=== PATIENT | female | born 1960 | race Caucasian/White ===

== ENCOUNTER 2023-03-21 12:09 | Emergency (ER) | payer BC, OTHER ==
[~2023-03-21] VITALS: Ht 157 cm; Wt 124.0 kg
--- NOTE | 2023-03-21 12:21 | ED Neurological Problem ---
General Stated Complaint: RT SIDED NUMBNESS; C-SPINE PAIN History of Present Illness Date Seen by Provider: Mar 21, 2023 Time Seen by Provider: 12:18 Initial Comments 62-year-old female presents with what she is describing as "right sided numbness" this been going on at least a month and a half in her right arm and hand. She does have some pain in her neck. She reports that today she felt like her right side of her face was numb like she had a "Novocain shot" and that the whole right side of her body is numb. Patient denies any focal weakness deficit slurred speech or other systemic complaints. Allergies and Home Medications Allergies Coded Allergies: tetracycline (Verified Allergy, Severe, RASH, 03/21/23) Patient Home Medication List Home Medication List Reviewed: Yes Review of Systems Review of Systems Constitutional: see HPI Eyes: No Symptoms Reported Ears, Nose, Mouth, Throat: no symptoms reported Respiratory: no symptoms reported Cardiovascular: no symptoms reported Gastrointestinal: no symptoms reported Genitourinary: no symptoms reported Musculoskeletal: no symptoms reported Skin: no symptoms reported Psychiatric/Neurological: See HPI Physical Exam Vital Signs Vital Signs - First Documented 03/21/23 12:10 Temp 36.4 Pulse 85 Resp 16 B/P (MAP) 174/90 (118) Pulse Ox 97 O2 Delivery Room Air Capillary Refill : Height, Weight, BMI Height: '" Weight: lbs. oz. kg; BMI Method: General Appearance: WD/WN, no apparent distress HEENT: PERRL/EOMI, normal ENT inspection, pharynx normal Neck: full range of motion, supple Respiratory: lungs clear, normal breath sounds Cardiovascular: normal peripheral pulses, regular rate, rhythm Gastrointestinal: non tender, soft Extremities: normal range of motion, non-tender, normal inspection Neurologic/Psychiatric: form maker II-XII nml as tested, alert, normal mood/affect, oriented x 3; No sensory deficit; other (Patient states the right side feels numb but then on exam states everything feels the same) Crainal Nerves: normal hearing, normal speech; No abnormal speech, No facial asymmetry, No facial paresthesias, No facial weakness Coordination/Gait: normal finger to nose, normal gait Skin: normal color, warm/dry Progress/Results/Core Measures Results/Orders Lab Results Laboratory Tests Test 03/21/23 12:30 Range/Units White Blood Count 12.4 H 4.3-11.0 10^3/uL Red Blood Count 5.03 3.80-5.11 10^6/uL Hemoglobin 13.2 11.5-16.0 g/dL Hematocrit 41 35-52 % Mean Corpuscular Volume 82 80-99 fL Mean Corpuscular Hemoglobin 26 25-34 pg Mean Corpuscular Hemoglobin Concent 32 32-36 g/dL Red Cell Distribution Width 15.1 H 10.0-14.5 % Platelet Count 395 130-400 10^3/uL Mean Platelet Volume 9.1 9.0-12.2 fL Immature Granulocyte % (Auto) 1 % Neutrophils (%) (Auto) 47 42-75 % Lymphocytes (%) (Auto) 37 12-44 % Monocytes (%) (Auto) 9 0-12 % Eosinophils (%) (Auto) 5 0-10 % Basophils (%) (Auto) 1 0-10 % Neutrophils # (Auto) 5.9 1.8-7.8 10^3/uL Lymphocytes # (Auto) 4.6 H 1.0-4.0 10^3/uL Monocytes # (Auto) 1.1 H 0.0-1.0 10^3/uL Eosinophils # (Auto) 0.6 H 0.0-0.3 10^3/uL Basophils # (Auto) 0.1 0.0-0.1 10^3/uL Immature Granulocyte # (Auto) 0.1 0.0-0.1 10^3/uL Percent Immature Platelet Fraction 2.4 0.0-7.6 % Prothrombin Time 13.5 12.2-14.7 SEC INR Comment 1.0 0.8-1.4 Activated Partial Thromboplast Time 36 H 24-35 SEC Sodium Level 136 135-145 MMOL/L Potassium Level 4.1 3.6-5.0 MMOL/L Chloride Level 98 98-107 MMOL/L Carbon Dioxide Level 25 21-32 MMOL/L Anion Gap 13 5-14 MMOL/L Blood Urea Nitrogen 9 7-18 MG/DL Creatinine 1.03 0.60-1.30 MG/DL Estimat Glomerular Filtration Rate 62 BUN/Creatinine Ratio 9 Glucose Level 94 70-105 MG/DL Calcium Level 9.8 8.5-10.1 MG/DL Corrected Calcium 9.4 8.5-10.1 MG/DL Magnesium Level 2.2 1.6-2.4 MG/DL Total Bilirubin 0.5 0.1-1.0 MG/DL Aspartate Amino Transf (AST/SGOT) 24 5-34 U/L Alanine Aminotransferase (ALT/SGPT) 16 0-55 U/L Alkaline Phosphatase 166 H 40-136 U/L Total Protein 8.4 H 6.4-8.2 GM/DL Albumin 4.5 3.2-4.5 GM/DL My Orders Orders - JAS REYNOLDS DO Ct Angio Head/Neck (03/21/23 12:21) Cbc And Automated Diff (03/21/23 12:21) Comprehensive Metabolic Panel (03/21/23 12:21) Magnesium (03/21/23 12:21) Protime With Inr (03/21/23 12:21) Partial Thromboplastin Time (03/21/23 12:21) Thyroid Analyzer (03/21/23 12:21) Iohexol Injection (Omnipaque 350 Mg/Ml 1 (03/21/23 13:15) Received Contrast (Hold Metformin- Contr (03/21/23 13:15) Ns (Ivpb) 100 Ml (Sodium Chloride 0.9% 1 (03/21/23 13:15) Medications Given in ED Current Medications Medications Dose Ordered Sig/Yasmin Route Start Time Stop Time Status Last Admin Dose Admin Iohexol 75 ml ONCE ONCE IV 03/21/23 13:15 03/21/23 13:16 DC 03/21/23 13:16 75 ML Sodium Chloride 100 ml ONCE ONCE IV 03/21/23 13:15 03/21/23 13:16 DC 03/21/23 13:16 80 ML Vital Signs/I&O 03/21/23 12:10 Temp 36.4 Pulse 85 Resp 16 B/P (MAP) 174/90 (118) Pulse Ox 97 O2 Delivery Room Air Progress Progress Note : Progress Note Patient's diagnostic studies were ordered reviewed and interpreted by me. Patient labs show no significant acute abnormalities. Patient's CT head and CTA were reviewed and showed no acute findings. Patient's symptoms are more of a paresthesia than any stroke type symptoms. I recommend she follow-up with her primary care provider for further outpatient work-up including possible MRI or neurologic consultation. She was stable and discharged home. Patient is at increased risk for morbidity and mortality based on her social determinants of health. Departure Impression Primary Impression: Paresthesia Disposition: 01 HOME, SELF-CARE Condition: Stable Departure-Patient Inst. Referrals: NO,LOCAL PHYSICIAN (PCP/Family) Primary Care Physician Patient Instructions: Paresthesia (DC) Add. Discharge Instructions: Please follow-up with your primary care provider for further evaluation including possible MRIs or neuro referral. JAS REYNOLDS DO Mar 21, 2023 12:20
[2023-03-21 12:35] LABS: BASOPHILS # (AUTO) 0.1 10^3/uL (0.0-0.1); BASOPHILS % (AUTO) 1 % (0-10); EOSINOPHILS # (AUTO) 0.6 10^3/uL (0.0-0.3); EOSINOPHILS % (AUTO) 5 % (0-10); HEMATOCRIT 41 % (35-52); HEMOGLOBIN 13.2 g/dL (11.5-16.0); LYMPHOCYTES # (AUTO) 4.6 10^3/uL (1.0-4.0); LYMPHOCYTES % (AUTO) 37 % (12-44); MEAN CORPUSCULAR HEMOGLOBIN 26 pg (25-34); MEAN CORPUSCULAR HGB CONC 32 g/dL (32-36); MEAN CORPUSCULAR VOLUME 82 fL (80-99); MEAN PLATELET VOLUME 9.1 fL (9.0-12.2); MONOCYTES # (AUTO) 1.1 10^3/uL (0.0-1.0); MONOCYTES % (AUTO) 9 % (0-12); NEUTROPHILS # (AUTO) 5.9 10^3/uL (1.8-7.8); NEUTROPHILS % (AUTO) 47 % (42-75); PLATELET COUNT 395 10^3/uL (130-400); WHITE BLOOD COUNT 12.4 10^3/uL (4.3-11.0)
[2023-03-21 12:56] LABS: PROTHROMBIN TIME PATIENT 13.5 SEC (12.2-14.7)
[2023-03-21 12:57] LABS: ALBUMIN 4.5 GM/DL (3.2-4.5); BILIRUBIN,TOTAL 0.5 MG/DL (0.1-1.0); CALCIUM 9.8 MG/DL (8.5-10.1); CREATININE SERUM 1.03 MG/DL (0.60-1.30); MAGNESIUM 2.2 MG/DL (1.6-2.4); POTASSIUM 4.1 MMOL/L (3.6-5.0); TOTAL PROTEIN 8.4 GM/DL (6.4-8.2)
[2023-03-21] MEDS ORDERED: HOLD METFORMIN - RECEIVED CONTRAST 20 ML VIAL IV SCH (13:15)
[2023-03-21] MEDS ORDERED: IOHEXOL 350 MG/ML 100 ML (OMNIPAQUE 350) VIAL IV ONE (13:15)
[2023-03-21] MEDS ORDERED: NS 100 ML (IVPB) BAG IV ONE (13:15)
--- NOTE | 2023-03-21 14:10 | Diagnostic Imaging Report ---
PROCEDURE: CT angiography of the head and CT angiography of the neck with and without contrast. TECHNIQUE: Contiguous noncontrast images were obtained from the skull base through the vertex. After intravenous contrast administration, helical CT angiography of the neck was performed. Source data was reformatted into 3D MIP projections. Delayed post contrast acquisition was also obtained. Auto Exposure Controls were utilized during the CT exam to meet ALARA standards for radiation dose reduction. INDICATION: Right arm and hand numbness. COMPARISON: No prior studies are available for comparison. FINDINGS: Precontrast imaging through the brain demonstrates the ventricles to be within normal limits. There is fairly significant periventricular and subcortical low attenuation consistent with chronic microvascular ischemia. There is no midline shift. No acute intra-axial or extra-axial hemorrhage is detected. No abnormal enhancement following contrast administration on the delayed images is identified. CT angiographic portion of the study does show a normal three-vessel branching pattern to the aortic arch. Both the right and left common carotid arteries are widely patent. Carotid bifurcations demonstrates some calcified plaque but no high-grade stenosis is identified. Right and left internal carotid arteries are widely patent. The vertebral arteries appear to be codominant. Both vertebral arteries are widely patent. Basilar is small but no thromboemboli are identified. There appears to be a origin bilaterally with posterior cerebral arteries appearing widely patent. Right and left anterior cerebral arteries are widely patent. M1 and M2 branches of the middle cerebral arteries are patent bilaterally. No thromboemboli or large vessel occlusion is detected. IMPRESSION: Essentially unremarkable CT angiogram of the head and neck. No thromboemboli or large vessel occlusion is detected. Dictated by: Dictated on workstation # [id number]
[2023-03-21 14:24] VITALS: BP 138/86
[2023-03-21 15:38] LABS: TSH (THYROID ANALYZER) 0.79 UIU/ML (0.35-4.94)
== END 2023-03-21 14:24 | disposition home or self-care (01) ==
LOC: ER FS 12:12
DX: R20.2 Paresthesia of skin (principal)
CPT/HCPCS: 36415; 70496; 70498; 80053; 83735; 84443; 85025; 85610; 85730; Q9967